=== PATIENT | male | born 1990 | race African-American/Black ===

== ENCOUNTER 2020-10-27 12:19 | Observation (INO) ==
[2020-10-27] MEDS ORDERED: ACETAMINOPHEN 325 MG TABLET PO PRN (17:51)
[2020-10-27] MEDS ORDERED: ONDANSETRON 4 MG/2 ML VIAL IV PRN (17:51)
[2020-10-27 19:02] LABS: Basophils # 0.1 10*3/uL (0.0-0.2); Basophils % 0.7 % (0.0-0.8); Eosinophils # 0.1 10*3/uL (0.0-0.87); Eosinophils % 1.6 % (0.00-10.9); Hematocrit 42.2 VOL% (42.0-52.0); Hemoglobin 13.1 GM/DL (14.0-18.0); Immature Granulocytes % 1.3 %; Immature Granulocytes Absolute 0.09 #; Lymphocytes % 14.1 % (21.2-54.2); Mean Corpuscular Volume 80.5 FL (87-102); Mean Platelet Volume 10.1 FL (9.6-12.0); Monocytes % 4.7 % (1.7-12.7); Neutrophils % 77.6 % (38.7-73.9); Platelet Count 315 T/CUMM (130-400); Red Blood Count 5.24 MC/CUMM (3.8-5.5); Red Cell Distribution Width 18.7 % (9.3-17.3); White Blood Count 7.1 T/CUMM (4-12)
[2020-10-27] MEDS: hydrALAZINE 20 MG/1 ML VIAL IV PRN ×2 (19:02→22:03)
[2020-10-27 19:24] LABS: Calcium 7.9 MG/DL (8.5-10.1); Osmolality,Calculated 292.4 MOS/KG (273-304)
[2020-10-27] MEDS: ATORVASTATIN 40 MG TABLET PO SCH (22:02)
[2020-10-28 06:04] LABS: Bilirubin,Urine Negative (Negative); Blood, Urine Negative (Negative); Glucose,Urine (UA) 50 mg/dL (Negative); Ketones,Urine Negative (Negative); Mucus,Urine Occasional /LPF (Occasional); Nitrite,Urine Negative (Negative); Protein,Urine >=500 MG/DL; RBC,Urine <1 /HPF (0-4); Urine Appearance CLEAR (Clear); Urine Color Yellow (Yellow); Urine Specific Gravity 1.009 (1.001-1.035); Urine Urobilinogen < 2.0 EU/DL (0.2-1.0); WBC,Urine <1 /HPF (0-6)
[2020-10-28] MEDS: hydrALAZINE 20 MG/1 ML VIAL IV PRN (06:19)
[2020-10-28] MEDS ORDERED: FUROSEMIDE 40 MG TABLET PO SCH (09:00)
[2020-10-28] MEDS: carvediloL 25 MG TABLET PO SCH (09:19)
[2020-10-28] MEDS: calcitrioL 0.25 MCG CAPSULE PO SCH (09:19)
[2020-10-28] MEDS: HEPARIN 5,000 UNIT/1 ML VIAL SUBCUT SCH ×2 (11:53→19:15)
[2020-10-28] MEDS: amLODIPine 10 MG TABLET PO SCH (11:53)
[2020-10-28] MEDS: FUROSEMIDE 80 MG TABLET PO SCH (15:22)
[2020-10-28] MEDS: ATORVASTATIN 40 MG TABLET PO SCH (22:06)
[2020-10-29] MEDS: hydrALAZINE 20 MG/1 ML VIAL IV PRN ×2 (01:00→18:41)
[2020-10-29] MEDS: HEPARIN 5,000 UNIT/1 ML VIAL SUBCUT SCH ×3 (04:56→18:40)
[2020-10-29] MEDS: cloNIDine 0.1 MG TABLET PO PRN ×2 (04:56→17:45)
[2020-10-29 06:23] LABS: Basophils # 0.1 10*3/uL (0.0-0.2); Basophils % 0.8 % (0.0-0.8); Eosinophils # 0.3 10*3/uL (0.0-0.87); Hematocrit 39.5 VOL% (42.0-52.0); Hemoglobin 12.2 GM/DL (14.0-18.0); Immature Granulocytes % 0.8 %; Immature Granulocytes Absolute 0.05 #; Lymphocytes # 1.1 10*3/uL (1.4-4.0); Mean Corpuscular HGB Conc 30.9 GM/DL (32-36); Mean Corpuscular Volume 80.9 FL (87-102); Mean Platelet Volume 10.5 FL (9.6-12.0); Monocytes % 8.5 % (1.7-12.7); Neutrophils % 67.9 % (38.7-73.9); Platelet Count 308 T/CUMM (130-400); Red Blood Count 4.88 MC/CUMM (3.8-5.5); Red Cell Distribution Width 18.8 % (9.3-17.3); White Blood Count 6.5 T/CUMM (4-12)
[2020-10-29 06:54] LABS: Calcium 7.6 MG/DL (8.5-10.1); Osmolality,Calculated 296.1 MOS/KG (273-304)
[2020-10-29] MEDS: ASPIRIN EC 81 MG TABLET PO SCH (08:43)
[2020-10-29] MEDS: amLODIPine 10 MG TABLET PO SCH (08:43)
[2020-10-29] MEDS: FUROSEMIDE 80 MG TABLET PO SCH (08:43)
[2020-10-29] MEDS: calcitrioL 0.25 MCG CAPSULE PO SCH (08:43)
[2020-10-29] MEDS: carvediloL 25 MG TABLET PO SCH (08:43)
[2020-10-29] MEDS: ATORVASTATIN 40 MG TABLET PO SCH (20:57)
[2020-10-30] MEDS: HEPARIN 5,000 UNIT/1 ML VIAL SUBCUT SCH ×2 (04:12→11:33)
[2020-10-30] MEDS: cloNIDine 0.1 MG TABLET PO PRN (04:14)
[2020-10-30 06:17] LABS: Basophils % 0.6 % (0.0-0.8); Eosinophils # 0.3 10*3/uL (0.0-0.87); Eosinophils % 5.7 % (0.00-10.9); Hematocrit 38.9 VOL% (42.0-52.0); Hemoglobin 12.1 GM/DL (14.0-18.0); Immature Granulocytes % 0.4 %; Immature Granulocytes Absolute 0.02 #; Lymphocytes # 0.9 10*3/uL (1.4-4.0); Mean Corpuscular HGB Conc 31.1 GM/DL (32-36); Mean Corpuscular Volume 81.2 FL (87-102); Mean Platelet Volume 10.9 FL (9.6-12.0); Monocytes % 7.9 % (1.7-12.7); Neutrophils % 67.4 % (38.7-73.9); Platelet Count 295 T/CUMM (130-400); Red Blood Count 4.79 MC/CUMM (3.8-5.5); Red Cell Distribution Width 18.5 % (9.3-17.3); White Blood Count 5.1 T/CUMM (4-12)
[2020-10-30 06:49] LABS: Albumin 2.4 G/DL (3.4-5.0); Calcium 7.6 MG/DL (8.5-10.1); Osmolality,Calculated 292.3 MOS/KG (273-304)
[2020-10-30] MEDS: amLODIPine 10 MG TABLET PO SCH (10:06)
[2020-10-30] MEDS: ASPIRIN EC 81 MG TABLET PO SCH (10:07)
[2020-10-30] MEDS: FUROSEMIDE 80 MG TABLET PO SCH (10:07)
[2020-10-30] MEDS: carvediloL 25 MG TABLET PO SCH (10:07)
[2020-10-30] MEDS: calcitrioL 0.25 MCG CAPSULE PO SCH (10:07)
[2020-10-30] MEDS: hydrALAZINE 20 MG/1 ML VIAL IV PRN (14:15)
[2020-10-30 16:44] VITALS: BP 145/93
== END 2020-10-30 17:34 | disposition home or self-care (01) ==
LOC: N.3E → SUATTDRO 17:19 → N.3E 10-29 15:16
PROVIDERS: ADMIT Internal Medicine; ATTEND Internal Medicine